=== PATIENT | male | born 1945 | race Two or more races ===

== ENCOUNTER 2022-11-23 15:27 | Emergency (ER) | payer OTHER ==
[~2022-11-23] VITALS: Ht 340.4 cm; Wt 61.2 kg
[2022-11-23] MEDS ORDERED: TAMSULOSIN HCL0.4 MG PO (16:07)
[2022-11-23] MEDS ORDERED: FAMOTIDINE40 MG PO (16:07)
[2022-11-23] MEDS ORDERED: ATORVASTATIN CA20 MG PO (16:07)
[2022-11-23] MEDS ORDERED: MIRTAZAPINE15 MG PO (16:07)
[2022-11-23] MEDS ORDERED: VITAMIN D3125 MCG PO (16:08)
== END 2022-11-23 20:12 | disposition home or self-care (01) ==
LOC: ER 15:27
DX: R30.0 Dysuria (principal)